=== PATIENT | female | born 1970 | race Caucasian/White ===

== ENCOUNTER 2020-09-12 12:17 | Emergency (ER) | payer OTHER, SELFPAY ==
[2020-09-12] VITALS (8 sets, daily range): BP systolic 122–185; BP diastolic 71–93; PULSE 78–100; RESP 16–24; TEMP 36.7; O2SAT 98–100; BMI 30.2
--- NOTE | 2020-09-12 12:42 | DI.RAD.S_ITS ---
PROCEDURE: XR CHEST 1V INDICATIONS: chest pain TECHNIQUE: One view of the chest was acquired. COMPARISON: None. FINDINGS: Surgical changes and devices: None. Lungs and pleura: Lungs are clear. No pleural effusions or pneumothorax. Mediastinum: Mediastinal contours appear normal. Heart size is normal. Bones and chest wall: No suspicious bony lesions. Overlying soft tissues appear unremarkable. IMPRESSION: No acute cardiopulmonary pathology. Dictated by: Saul Watkins M.D. on 09/12/2020 at 12:19 Approved by: Saul Watkins M.D. on 09/12/2020 at 12:19
[2020-09-12 13:10] LABS: Add Manual Diff / Slide Review NO; Basophils Absolute Auto 0 /uL (0-100); Basophils Percent Auto 0.5 % (0-2); Eosinophils Absolute Auto 100 /uL (0-450); Eosinophils Percent Auto 0.8 % (2-4); Hematocrit 33.5 % (36-46); Hemoglobin 10.4 g/dL (12.0-16.0); Lymphocytes Absolute Auto 2100 /uL (1100-4500); Lymphocytes Percent Auto 25.3 % (25-40); Mean Corpuscular HGB Conc 31.1 % (30-36); Mean Corpuscular Hemoglobin 21.8 PG (26-34); Mean Corpuscular Volume 70.1 fL (80-100); Monocytes Absolute Auto 500 /uL (0-900); Monocytes Percent Auto 6.3 % (3-14); Neutrophils Absolute Auto 5700 /uL (1500-7000); Neutrophils Percent Auto 67.1 % (50-75); Platelet Count 272 X10^3/uL (150-400); Red Blood Cell Count 4.77 X10^6/uL (4.0-5.2); Red Cell Distribution Width 17.2 % (11.6-14.8); White Blood Cell Count 8.5 X10^3/uL (4.5-11.0)
[2020-09-12 13:21] LABS: Prothrombin Time 11.4 SECONDS (10.1-12.7)
[2020-09-12 13:23] LABS: PTT Partial Thromboplastin Tim 31 SECONDS (26.4-36.2)
[2020-09-12 13:25] LABS: Alanine Aminotransferase 16 IU/L (<35); Albumin 4.1 g/dL (3.5-5.0); Albumin Globulin Ratio 1.3 (1.0-2.8); Alkaline Phosphatase 63 U/L (38-126); Aspartate Aminotransferase 23 IU/L (14-36); BUN Creatinine Ratio 32.8 (6-22); Bilirubin Total 0.6 mg/dL (0.2-1.3); Blood Urea Nitrogen 20 mg/dL (7-17); Calcium 8.9 mg/dL (8.4-10.2); Carbon Dioxide 28 mmol/L (22-32); Chloride 106 mmol/L (98-107); Creatine Kinase 37 U/L (30-135); Estimated Glomerular Filt Rate > 60.0 mL/min (>60); Globulin 3.2 g/dL (1.7-4.1); Glucose 106 mg/dL (70-100); HEMOLYSIS < 15 (0-50); Lipase 78 U/L (23-300); Potassium 4.1 mmol/L (3.4-5.1); Sodium 138 mmol/L (137-145); Total Protein 7.3 g/dL (6.3-8.2)
[2020-09-12 13:36] LABS: NT-proBNP (BNP-Adult 18+) 172 pg/mL (<125); Troponin I < 0.012 ng/mL (0.01-0.034)
--- NOTE | 2020-09-12 15:11 | ED_ITS ---
HPI - Headache <KIM Allen-BC - Last Filed: 09/12/20 19:10> General Chief Complaint: Headache Stated Complaint: pain right side of face Time Seen by Provider: 09/12/20 12:21 Source: patient Mode of arrival: Ambulatory Limitations: no limitations History of Present Illness HPI Narrative: The patient is a 50-year-old female nonsmoker with no pertinent medical history presents with a chief complaint of right-sided facial pain. She states that she had 15-30 seconds of right-sided facial pain last night twice, it got better with massage by her . This morning at 7:30 a.m. she had approximately 15 seconds of right-sided facial pain. No recent dental work. No fevers nausea vomiting or diarrhea. She states that this 15-30 second episode of pain did not feel better with massage, so she called her primary care provider's office who referred her to the emergency department for a cardiac evaluation. She denies any chest pain shortness of breath. She denies any lightheadedness or dizziness. She denies any recent dental work, nausea vomiting diarrhea palpitations or swelling of her lips face or extremities. He denies any rashes for history of similar pain. However she has not had pain since 07:30 this morning. Related Data Home Medications Medication Instructions Recorded Confirmed No Known Home Medications 09/12/20 09/12/20 Allergies Allergy/AdvReac Type Severity Reaction Status Date / Time No Known Drug Allergies Allergy Verified 09/12/20 12:26 Review of Systems <KIM Allen- - Last Filed: 09/12/20 19:10> Review of Systems Narrative: GENERAL: Denies chills, fatigue, malaise, fever, sweats. HEENT: See HPI RESPIRATORY: Denies dyspnea, cough, wheezing, hemoptysis, sputum. CARDIOVASCULAR: Denies chest pain, palpitations, orthopnea, edema, GASTROINTESTINAL: Denies nausea, vomiting, abdominal pain, diarrhea, constipati on, melena. : Denies dysuria, frequency, incontinence, hematuria, urinary retention. MUSCULOSKELETAL: denies weakness, joint pain, or bony pain SKIN: Denies rash, skin lesions, or other NEUROLOGIC: Denies weakness, headache, numbness, change in speech, confusion, seizures, incoordination. PSYCHIATRIC: No concerning psychosocial issues. 12 point review of systems is negative except for those stated above Patient History <LENNIE Allen - Last Filed: 09/12/20 19:10> Surgical History History of third molar tooth extraction Status post delivery Social History Smoking Status: Never smoker Smoking Status: Never smoker Substance Use Type: does not use Exam <LENNIE Allen - Last Filed: 09/12/20 19:10> Narrative Exam Narrative: GENERAL: This is a well-nourished, well-developed patient, no acute distress HEAD: Atraumatic. Normocephalic. No temporal or scalp tenderness. EYES: Pupils equal round and reactive. Extraocular motions intact. No scleral icterus. No injection or drainage. ENT: Nose without bleeding, purulent drainage or septal hematoma. Throat without erythema, tonsillar hypertrophy or exudate. Uvula midline. Airway patent. Good dentition noted. No swelling or erythema of the gums. Bilateral TMs pearly gra y. NECK: Trachea midline. No JVD or lymphadenopathy. Supple, nontender, no meningeal signs. CARDIOVASCULAR: Regular rate and rhythm RESPIRATORY: Clear to auscultation. Breath sounds equal bilaterally. No wheezes, rales, or rhonchi. No cough. No increased respiratory effort to no accessory muscle use. GASTROINTESTINAL: Abdomen soft, non-tender, nondistended. No hepato- splenomegaly, or palpable masses. No guarding. EXTREMITIES: No clubbing, cyanosis, or edema. No joint tenderness, effusion, or edema noted. BACK: Nontender without deformity or crepitance. No flank tenderness. NEURO: AOx3. SKIN: No rash or erythema on visible skin. Initial Vital Signs Initial Vital Signs: Vital Signs Temperature 98.0 F 09/12/20 12:26 Pulse Rate 83 09/12/20 12:26 Respiratory Rate 18 09/12/20 12:26 Blood Pressure 185/93 H 09/12/20 12:26 Pulse Oximetry 100 09/12/20 12:26 <Carolynn Ponce DO - Last Filed: 09/13/20 07:38> Initial Vital Signs Initial Vital Signs: Vital Signs Temperature 98.0 F 09/12/20 12:26 Pulse Rate 83 09/12/20 12:26 Respiratory Rate 18 09/12/20 12:26 Blood Pressure 185/93 H 09/12/20 12:26 Pulse Oximetry 100 09/12/20 12:26 Scores <Gilda CosmeREGLA - Last Filed: 09/12/20 19:10> GCS Rachel coma scale eye opening: Spontaneous Rachel coma scale verbal response: Orientated Pratt coma scale motor response: Obey commands Rachel coma scale total score: 15 Course <[facility]KIM [facility]FL[facility] - Last Filed: 09/12/20 19:10> Orders Ordered: ED Orders 09/12/20 12:42 XR chest 1V Stat EKG-12 Lead Stat 09/12/20 13:00 Complete Blood Count AUTO DIFF Stat Comprehensive Metabolic Panel Stat Lipase Stat NT-proBNP (BNP-Adult 18+) Stat Partial Thromboplastin Time Stat Prothrombin Time INR Stat Troponin & CK Cardiac Panel Stat Vital Signs Vital signs: Vital Signs - 8 hr 09/12/20 12:26 09/12/20 12:54 09/12/20 13:00 Temperature 98.0 F Pulse Rate 83 92 H 87 Respiratory Rate 18 18 22 Blood Pressure 185/93 H Pulse Oximetry 100 98 100 09/12/20 13:01 09/12/20 13:17 09/12/20 13:30 Temperature Pulse Rate 84 100 H 84 Respiratory Rate 16 24 17 Blood Pressure 132/71 157/92 H 124/76 Pulse Oximetry 100 100 100 09/12/20 14:00 09/12/20 14:30 Temperature Pulse Rate 78 82 Respiratory Rate 16 20 Blood Pressure 125/75 122/77 Pulse Oximetry 100 100 <Carolynn Ponce DO - Last Filed: 09/13/20 07:38> Orders Ordered: ED Orders 09/12/20 12:42 XR chest 1V Stat EKG-12 Lead Stat 09/12/20 13:00 Complete Blood Count AUTO DIFF Stat Comprehensive Metabolic Panel Stat Lipase Stat NT-proBNP (BNP-Adult 18+) Stat Partial Thromboplastin Time Stat Prothrombin Time INR Stat Troponin & CK Cardiac Panel Stat Vital Signs Vital signs: Vital Signs - 8 hr 09/12/20 12:26 09/12/20 12:54 09/12/20 13:00 Temperature 98.0 F Pulse Rate 83 92 H 87 Respiratory Rate 18 18 22 Blood Pressure 185/93 H Pulse Oximetry 100 98 100 09/12/20 13:01 09/12/20 13:17 09/12/20 13:30 Temperature Pulse Rate 84 100 H 84 Respiratory Rate 16 24 17 Blood Pressure 132/71 157/92 H 124/76 Pulse Oximetry 100 100 100 09/12/20 14:00 09/12/20 14:30 Temperature Pulse Rate 78 82 Respiratory Rate 16 20 Blood Pressure 125/75 122/77 Pulse Oximetry 100 100 MDM - Headache <Gilda Cosme, KIM- - Last Filed: 09/12/20 19:10> Lab Data Attestation: I reviewed the patient's lab results. Result diagrams: 09/12/20 13:00 09/12/20 13:00 Labs: Lab Results 09/12/20 09/12/20 09/12/20 Range/Units 13:00 13:00 13:00 WBC 8.5 (4.5-11.0) X10^3/uL RBC 4.77 (4.0-5.2) X10^6/uL Hgb 10.4 L (12.0-16.0) g/dL Hct 33.5 L (36-46) % MCV 70.1 L (80-100) fL MCH 21.8 L (26-34) PG MCHC 31.1 (30-36) % RDW 17.2 H (11.6-14.8) % Plt Count 272 (150-400) X10^3/uL Neut % (Auto) 67.1 (50-75) % Lymph % (Auto) 25.3 (25-40) % Schoolcraft % (Auto) 6.3 (3-14) % Eos % (Auto) 0.8 L (2-4) % Baso % (Auto) 0.5 (0-2) % Neut # (Auto) 5700 (8951-5951) /uL Lymph # (Auto) 2100 (9457-6256) /uL Schoolcraft # (Auto) 500 (0-900) /uL Eos # (Auto) 100 (0-450) /uL Baso # (Auto) 0 (0-100) /uL PT 11.4 (10.1-12.7) SECONDS INR 1.0 (0.9-1.3) APTT 31 (26.4-36.2) SECONDS Sodium 138 (137-145) mmol/L Potassium 4.1 (3.4-5.1) mmol/L Chloride 106 (98-107) mmol/L Carbon Dioxide 28 (22-32) mmol/L BUN 20 H (7-17) mg/dL Creatinine 0.61 (0.52-1.04) mg/dL Estimated GFR > 60.0 (>60) mL/min BUN/Creatinine Ratio 32.8 H (6-22) Glucose 106 H (70-100) mg/dL Calcium 8.9 (8.4-10.2) mg/dL Total Bilirubin 0.6 (0.2-1.3) mg/dL AST 23 (14-36) IU/L ALT 16 (<35) IU/L Alkaline Phosphatase 63 (38-126) U/L Total Creatine Kinase 37 (30-135) U/L CK-MB (CK-2) TNP CK-MB (CK-2) Rel Index TNP Troponin I < 0.012 (0.01-0.034) ng/mL NT-Pro-B Natriuret Pep 172 H (<125) pg/mL Total Protein 7.3 (6.3-8.2) g/dL Albumin 4.1 (3.5-5.0) g/dL Globulin 3.2 (1.7-4.1) g/dL Albumin/Globulin Ratio 1.3 (1.0-2.8) Lipase 78 (23-300) U/L Point of Care Testing Test Results Negative Urine Dip Bedside Urine Glucose Negative Bedside Urine Bilirubin - Negative Bedside Urine Ketone - Negative Urine Specific Nickerson 1.030 Bedside Urine Occult Blood +/- Bedside Urine pH 6.0 Bedside Urine Protein +/- 15 Bedside Urine Urobilinogen - Negative Bedside Urine Nitrite - Negative Bedside Urine Leukocytes - Negative Esterase Imaging Data Chest x-ray: Radiologist's Impression: [address] [place] [id number] XRay Report Signed Patient: Enedelia Granado [facility]#: [id number] : 1970Acct:[id number] Age/Sex: 50 / FDate of Service: 09/12/20 Loc: ED Accession Number: [id number] Procedure: XR chest 1V Ordering Provider: Gilda Cosme [employer]-BC PROCEDURE: XR CHEST 1V INDICATIONS: chest pain TECHNIQUE: One view of the chest was acquired. COMPARISON: None. FINDINGS: Surgical changes and devices: None. Lungs and pleura: Lungs are clear. No pleural effusions or pneumothorax. Mediastinum: Mediastinal contours appear normal. Heart size is normal. Bones and chest wall: No suspicious bony lesions. Overlying soft tissues appear unremarkable. IMPRESSION: No acute cardiopulmonary pathology. Dictated by: Saul Watkins M.D. on 09/12/2020 at 12:19 Approved by: Saul Watkins M.D. on 09/12/2020 at 12:19 ECG Data Attestation: I personally reviewed and interpreted this ECG as follows: Interpretation: NSR 73, p.r. interval 164. QRS 88. viewed by Dr Ponce MDM Narrative Medical decision making narrative: The patient is a 50-year-old female who presents with a chief complaint of right-sided facial pain, last time at 7:30 a.m. this morning. She is in no acute distress and denies pain throughout her stay in the ER. Given affiliation with jaw pain for cardiac etiology, EKG was done, troponin was negative, lab work grossly within normal limits. Discussed with patient that she appears to be slightly anemic, which she states she has a history there of. She denies any signs of systemic illness, any dental pain, no obvious ear infection. I did discussed at length monitoring for possible rash is her shooting pain it could be a prodrome for shingles. Encouraged follow-up with primary care provider in the next few days. Her pain could correlate with TMJ especially since she does have history of grinding her teeth at night and uses a dental guard. I encouraged her to monitor for any possible exacerbating factors, or anything that prompts the pain. Encouraged conservative measures such as ice, [id number] pain medications as needed and able. Discussed at length coming back to the ER for acute concerns such as chest pain, shortness of breath, concern of heart attack or stroke. Patient has no questions or concerns upon discharge and states understanding of return precautions as well as follow- up care. She has been hemoglobin stable and without pain throughout her stay in the ER. <Carolynn Ponce, - Last Filed: 09/13/20 07:38> Lab Data Labs: Lab Results 09/12/20 09/12/20 09/12/20 Range/Units 13:00 13:00 13:00 WBC 8.5 (4.5-11.0) X10^3/uL RBC 4.77 (4.0-5.2) X10^6/uL Hgb 10.4 L (12.0-16.0) g/dL Hct 33.5 L (36-46) % MCV 70.1 L (80-100) fL MCH 21.8 L (26-34) PG MCHC 31.1 (30-36) % RDW 17.2 H (11.6-14.8) % Plt Count 272 (150-400) X10^3/uL Neut % (Auto) 67.1 (50-75) % Lymph % (Auto) 25.3 (25-40) % Schoolcraft % (Auto) 6.3 (3-14) % Eos % (Auto) 0.8 L (2-4) % Baso % (Auto) 0.5 (0-2) % Neut # (Auto) 5700 (7105-9598) /uL Lymph # (Auto) 2100 (1511-9817) /uL Schoolcraft # (Auto) 500 (0-900) /uL Eos # (Auto) 100 (0-450) /uL Baso # (Auto) 0 (0-100) /uL PT 11.4 (10.1-12.7) SECONDS INR 1.0 (0.9-1.3) APTT 31 (26.4-36.2) SECONDS Sodium 138 (137-145) mmol/L Potassium 4.1 (3.4-5.1) mmol/L Chloride 106 (98-107) mmol/L Carbon Dioxide 28 (22-32) mmol/L BUN 20 H (7-17) mg/dL Creatinine 0.61 (0.52-1.04) mg/dL Estimated GFR > 60.0 (>60) mL/min BUN/Creatinine Ratio 32.8 H (6-22) Glucose 106 H (70-100) mg/dL Calcium 8.9 (8.4-10.2) mg/dL Total Bilirubin 0.6 (0.2-1.3) mg/dL AST 23 (14-36) IU/L ALT 16 (<35) IU/L Alkaline Phosphatase 63 (38-126) U/L Total Creatine Kinase 37 (30-135) U/L CK-MB (CK-2) TNP CK-MB (CK-2) Rel Index TNP Troponin I < 0.012 (0.01-0.034) ng/mL NT-Pro-B Natriuret Pep 172 H (<125) pg/mL Total Protein 7.3 (6.3-8.2) g/dL Albumin 4.1 (3.5-5.0) g/dL Globulin 3.2 (1.7-4.1) g/dL Albumin/Globulin Ratio 1.3 (1.0-2.8) Lipase 78 (23-300) U/L Point of Care Testing Test Results Negative Urine Dip Bedside Urine Glucose Negative Bedside Urine Bilirubin - Negative Bedside Urine Ketone - Negative Urine Specific Nickerson 1.030 Bedside Urine Occult Blood +/- Bedside Urine pH 6.0 Bedside Urine Protein +/- 15 Bedside Urine Urobilinogen - Negative Bedside Urine Nitrite - Negative Bedside Urine Leukocytes - Negative Esterase Discharge Plan Departure Patient Disposition: Home Clinical Impression: Acute facial pain Discharge Date/Time: 09/12/20 15:20 Instructions: Jaw Pain: It's Not Just Stress, DI for Headache Activity Restrictions/Additional Instructions: Thank you for trusting us with your care today. I am sorry that I do not know exactly what caused your pain yesterday evening and this morning. As discussed, your EKG x-ray and lab work came back well. Please follow-up with primary care provider in the next few days. Please come back to the emergency department for any acute concerns. As discussed, please monitor for any rash or any other symptoms. Prescriptions: No Action No Known Home Medications RF: 0 Referrals: Amelia Lyn MD [Primary Care Provider] - <Carolynn Ponce DO - Last Filed: 09/13/20 07:38> Cosign ED Attending Coscaseyature Attestation: I was immediately available in the department for consultation. Documentation has been reviewed. I agree with assessment and plan.
== END 2020-09-12 15:20 | disposition home or self-care (01) ==
PROVIDERS: Emergency Provider Nurse Practitioner Family; Family Provider Family Medicine; PCP Family Medicine
DX: R51.9 Headache, unspecified (principal); R07.9 Chest pain, unspecified
CPT/HCPCS: 36415; 71045; 80053; 81003; 81025; 82550; 83690; 83880; 84484; 85025; 85610; 85730; 93005; 93010; 99284